=== PATIENT | female | born 1950 | race Caucasian/White ===

== ENCOUNTER 2017-05-24 15:32 | Observation (INO) ==
--- NOTE | 2017-05-24 15:44 | Emergency Department Report ---
Neuro HPI - General Stated Complaint: problem seeing out of left eye Time Seen by Provider: 05/24/17 15:43 Source: patient Mode of arrival: ambulatory Limitations: no limitations - History of Present Illness HPI Narrative: Patient is 66-year-old female, presents emergent for evaluation of loss of vision in left upper field. Patient had sudden onset of vision loss in her left upper eye field only in the left eye approximately 9 AM this morning. Patient didn't think anything of it, however after 6 hours she felt he might need to come to the emergency room for evaluation. Patient denies any headaches , fevers, systemic signs or symptoms or other localizing motor deficits. Patient presents to the ER for evaluation Onset (ago): hour(s) Time: 0900 Time Estimated: No Context: sudden onset - Related Data Home Medications: Home Medications Medication Instructions Recorded Confirmed Aspirin 325 mg PO HS 05/24/17 05/24/17 Lactobacillus Acidophilus 1 cap PO DAILY 05/24/17 05/24/17 [Probiotic] Levothyroxine Tab [Synthroid] 100 mcg PO ACB 05/24/17 05/24/17 Metoprolol Tartrate [Lopressor] 12.5 mg PO BID 05/24/17 05/24/17 Omeprazole [Prilosec] 20 mg PO ACB 05/24/17 05/24/17 Ramipril [Altace] 2.5 mg PO HS 05/24/17 05/24/17 Allergies/Adverse Reactions: Allergies Allergy/AdvReac Type Severity Reaction Status Date / Time cephalexin Allergy Mild Verified 05/24/17 16:33 Wheat Products Allergy Mild Verified 05/24/17 16:33 Review of Systems Constitutional: Denies: fever Eyes: Reports: vision change. Denies: eye pain, eye discharge ENT: Denies: ear pain, throat pain, dental pain, hearing loss Cardiovascular: Denies: chest pain, palpitations, dyspnea on exertion Respiratory: Denies: cough, dyspnea, wheezes Gastrointestinal: Denies: abdominal pain, nausea, vomiting Genitourinary: Denies: urgency, dysuria, frequency, genital lesions Musculoskeletal: Denies: back pain Integumentary: Denies: alopecia Neurological: Denies: headache, weakness, numbness, paresthesias Psychiatric: Denies: anxiety, depression PFSH Patient Stated Medical History Myocardial Infarction Yes Other GI Yes: CELIAC DISEASE Medical History Updates: [place]. Hyperthyroidism - Social History Smoking status: Never smoker Substance use type: does not use Alcohol intake frequency: does not drink Physical Exam - General General appearance: alert, in no apparent distress - Eye Eye exam: Present: PERRL, EOMI, other (patient lack of vision in left upper field, no sign of rectal detachment, does have copper wire) - ENT ENT exam: Present: normal oropharynx - Neck Neck exam: Present: full ROM, trachea midline - Respiratory Respiratory exam: Present: normal lung sounds bilaterally. Absent: respiratory distress, wheezes - Cardiovascular Cardiovascular exam: Present: regular rate, normal rhythm, normal heart sounds - Abdominal Exam Abdominal exam: Present: soft, normal bowel sounds. Absent: distention, tenderness - Back Exam Back exam: Present: full ROM. Absent: tenderness, CVA tenderness (R), muscle spasm, vertebral tenderness - Skin Skin exam: Present: warm, dry - Expanded Neurological Exam Patient oriented to: Present: person, place, time Speech: Present: fluid speech Cranial nerves: Normal: EOM function (II, III, IV, ), facial sensation (V), facial palsy (VII), gag reflex (IX), spinal accessory function (XI), tongue deviation (XII) Cerebellar function: normal gait Motor strength - LUE: 5/5 Motor strength - RUE: 5/5 Motor strength - LLE: 5/5 Motor strength - RLE: 5/5 Sensory exam upper extremity: Normal: light touch Sensory exam lower extremity: Normal: light touch DTR: 2+: biceps (L), biceps (R), patellar (L), patellar (R) Coma scale eye opening: spontaneous Coma scale motor response: obeys commands Coma scale verbal response: oriented Coma scale total: 15 - Psychiatric Psychiatric exam: Present: normal affect, normal mood Course Vital Signs Temperature 98.4 F 05/24/17 15:38 Pulse Rate 80 05/24/17 15:38 Respiratory Rate 18 05/24/17 15:38 Blood Pressure 132/77 05/24/17 15:38 Pulse Oximetry 94 05/24/17 15:38 Temperature 97.9 F 05/25/17 07:00 Pulse Rate 69 05/25/17 08:00 Respiratory Rate 16 05/25/17 07:00 Blood Pressure 126/69 05/25/17 07:00 Pulse Oximetry 93 05/25/17 07:00 Neuro Symptoms/Deficit - MDM Narrative Medical decision making narrative: Did discuss with teleneurologist stroke response. Patient is outside the window , given totality of symptoms TPA is not currently recommended. Would recommend admission CTA of the arteries, ophtho-consult Discuss case with Dr. Lin he will admit - Differential Diagnosis Likely: cerebrovascular accident, transient cerebral ischemia - Medical Records Attestation: I reviewed the patient's medical records. - Lab Data Attestation: I reviewed the patient's lab results. Result diagrams: 05/25/17 04:57 05/25/17 04:57 Lab Results 05/24/17 05/24/17 05/24/17 Range/Units 15:57 15:57 15:57 WBC 9.7 (4.5-11.0) T/MM3 RBC 5.01 (4.00-5.20) M/MM3 Hgb 13.2 (12-16) GM/DL Hct 40.2 (36-46) % MCV 80.2 (80-100) UM3 MCH 26.3 (26-34) UUG MCHC 32.8 (31-37) GM/DL RDW Std Deviation 48.5 (36.9-50.2) FL Plt Count 293 (130-400) T/MM3 MPV 10.3 (9.4-12.4) UM3 Immature Gran % (Auto) 0.2 (0.0-0.5) % Neut % (Auto) 31.8 L (33-66) % Lymph % (Auto) 55.8 H (23-45) % [place] % (Auto) 8.9 (0-9.0) % Eos % (Auto) 2.9 (0-4) % Baso % (Auto) 0.4 (0-2) % Neut # (Auto) 3.1 (1.8-7.7) T/MM3 Lymph # (Auto) 5.4 H (1-4.8) T/MM3 [place] # (Auto) 0.9 H (0-0.8) T/MM3 Eos # (Auto) 0.3 (0-0.5) T/MM3 Baso # (Auto) 0.0 (0-0.2) T/MM3 Abs Immat Gran (auto) 0.02 (0.00-0.03) T/MM3 INR 0.97 L (0.99-1.21) APTT 24.9 (24-36) SEC Turbidity < 20 (0-20) Sodium 147 H (134-144) MEQ/L Potassium 4.2 (3.6-5) MEQ/L Chloride 111 H (98-107) MEQ/L Carbon Dioxide 21 L (22-30) MEQ/L Anion Gap 15 (5-15) MEQ/L BUN 14.0 (7-17) MG/DL Creatinine 1.0 (0.7-1.2) MG/DL GFR Calculation 55 BUN/Creatinine Ratio 14 (6-26) RATIO Glucose 95 (65-110) MG/DL Glucometer (65-110) mg/dL Calculated Osmolality 283 H (261-280) MOSM/KG Calcium 9.0 (8.4-10.2) MG/DL Total Bilirubin 0.30 (0.20-1.30) MG/DL Icterus Index < 2 (0-7) AST 21 (14-36) U/L ALT 35 (9-52) U/L Alkaline Phosphatase 92 (38-126) U/L Total Protein 7.3 (6.3-8.2) G/DL Albumin 4.1 (3.5-5.0) G/DL Globulin 3.2 (2.4-3.6) G/DL Albumin/Globulin Ratio 1.3 (1.1-2.2) RATIO Specimen Hemolysis < 15 (0-25) 02/16/18 Range/Units 16:08 WBC (4.5-11.0) T/MM3 RBC (4.00-5.20) M/MM3 Hgb (12-16) GM/DL Hct (36-46) % MCV (80-100) UM3 MCH (26-34) UUG MCHC (31-37) GM/DL RDW Std Deviation (36.9-50.2) FL Plt Count (130-400) T/MM3 MPV (9.4-12.4) UM3 Immature Gran % (Auto) (0.0-0.5) % Neut % (Auto) (33-66) % Lymph % (Auto) (23-45) % [place] % (Auto) (0-9.0) % Eos % (Auto) (0-4) % Baso % (Auto) (0-2) % Neut # (Auto) (1.8-7.7) T/MM3 Lymph # (Auto) (1-4.8) T/MM3 [place] # (Auto) (0-0.8) T/MM3 Eos # (Auto) (0-0.5) T/MM3 Baso # (Auto) (0-0.2) T/MM3 Abs Immat Gran (auto) (0.00-0.03) T/MM3 INR (0.99-1.21) APTT (24-36) SEC Turbidity (0-20) Sodium (134-144) MEQ/L Potassium (3.6-5) MEQ/L Chloride (98-107) MEQ/L Carbon Dioxide (22-30) MEQ/L Anion Gap (5-15) MEQ/L BUN (7-17) MG/DL Creatinine (0.7-1.2) MG/DL GFR Calculation BUN/Creatinine Ratio (6-26) RATIO Glucose (65-110) MG/DL Glucometer 80 (65-110) mg/dL Calculated Osmolality (261-280) MOSM/KG Calcium (8.4-10.2) MG/DL Total Bilirubin (0.20-1.30) MG/DL Icterus Index (0-7) AST (14-36) U/L ALT (9-52) U/L Alkaline Phosphatase (38-126) U/L Total Protein (6.3-8.2) G/DL Albumin (3.5-5.0) G/DL Globulin (2.4-3.6) G/DL Albumin/Globulin Ratio (1.1-2.2) RATIO Specimen Hemolysis (0-25) - Radiology Data Attestation: I reviewed the patient's radiology results. CT scan shows no acute embolic or hemorrhagic etiology - EKG Data EKG #1 EKG attestation: Yes: I reviewed and interpreted this EKG. Rate: normal Rhythm: other (atrial pacing) [place]/QRS: normal Interpretation: no acute changes Critical Care Time Critical Care Time: Yes Total Critical Care Time: 42 Attestation: The high probability of a clinically significant, sudden or life threatening deterioration of the cardiovascular, neurologic system(s) required my full and direct attention, intervention and personal management. The aggregate critical care time was 42 minutes. This time is in addition to time spent performing reported procedures but includes the following: X Data Review and interpretation X Patient assessment and monitoring of vital signs X Documentation X Medication orders and management Disposition Clinical Impression: cva Disposition: 02 To [facility] Acute Care Condition: Stable for Transport - Seen By: physician
[2017-05-24] MEDS ORDERED: SALINE FLUSH 10ml SYRINGE IVF PRN (15:56)
--- NOTE | 2017-05-24 16:01 | CT Scan Report ---
Indication: loss of vision left upper PROCEDURE: CT head/brain wo con: Encounter: Initial Comparison: None Technique: Axial CT images through the head were performed without contrast. Iterative Reconstruction dose reducing technique was utilized. FINDINGS: Probable physiologic bilateral frontal periventricular calcifications. The ventricles are of normal size, shape, and contour for the patient's age. The brainstem, cerebellum, and cerebral hemispheres otherwise have a normal morphology and CT attenuation. There is no evidence of midline displacement. No hemorrhage, signs of acute territorial stroke, mass effect, mass lesions, or edema is evident. The visualized portions of the skull base, midface, and calvarium demonstrate no abnormality. The paranasal sinuses are well aerated and free of significant disease. The tympanic and mastoid cavities appear normal. IMPRESSION: No acute intracranial abnormality or hemorrhage. .
[2017-05-24] MEDS ORDERED: IOHEXOL 350mg/ml 75ml INJECTION ONE (17:53)
[2017-05-24] MEDS ORDERED: SALINE FLUSH 10ml SYRINGE ONE (17:54)
--- NOTE | 2017-05-24 18:25 | History & Physical Report ---
History of Present Illness Date: 05/24/17 Chief complaint: Inabilty to see out of top of left eye HPI: 66 y/o female with CAD/Hx TX in 2005 presents to [facility] ED secondary to acute onset of lose of vision in left upper visual field. Symptoms onset abruptly this morning about 9 am. Noticed she could not see out of left eye, upper area. Vision to right eye normal. Has not been having dry or itching eyes. No headache or head pain. Hearing and speech normal. No weakness or incoordination of her arms or legs. No falls, trauma or injury. Denies palpitations, chest pressure, chest pain, or heaviness. No nausea or ab pain. Appetite stable. Bowel function stable. Reports 'cold like' symptoms last week which are resolving--having less cough/congestion. No f/c. Presents to ED approximately 6 hours after onset of symptoms. CT head unremarkable for mass or bleed. Symptoms persistent. Teleneurology activated. Outside window for thrombolytics. Recommend CTA of head and neck. Patient on ASA and adherent. Discussed about changing to Plavix, but very reluctant as reports started to 'go out of her head ' when she was on Plavix years ago. Review of Systems All systems PM: 10-point ROS was reviewed, no additional remarkable complaints except - Constitutional Constitutional: Absent: headache(s) - EENMT Eyes: Present: loss of vision. Absent: pain, photophobia Balance: Absent: vertigo Nose: Present: allergies - Cardiovascular Cardiovascular: Absent: chest pain, palpitations, edema - Respiratory Respiratory: Present: cough (Resolving). Absent: chest congestion - Gastrointestinal Gastrointestinal: Absent: abdominal pain, diarrhea, nausea - Genitourinary Genitourinary: Absent: difficulty urinating, dysuria - Musculoskeletal Musculoskeletal: Absent: muscle cramps, muscle weakness, myalgias - Integumentary/Breasts Integumentary: Absent: pruritus, rash - Neurological Neurological: Present: as per HPI, loss of vision. Absent: abnormal gait, abnormal movements, abnormal speech, confusion, dizziness, focal weakness, memory loss, vertigo, weakness - Hematologic/Lymphatic Hematologic/Lymphatic: Absent: easy bleeding, easy bruising - Allergic/Immunologic Allergic/Immunologic: Present: seasonal rhinorrhea. Absent: itchy eyes Past Medical History Patient Stated Medical History Myocardial Infarction Yes Other GI Yes: CELIAC DISEASE Medical History Updates: CAD with HX TX 2006. Grave's disease Hyperthyroidism. GERD. Seasonal allergies Surgical History: Hx Pacemaker/difibrilator. Hx Cholecystectomy. Hx Colonoscopy Family History: Mother had diabetes Father had colon cancer Family History Updates: . - Social History Smoking status: Former smoker Substance use type: does not use Alcohol intake frequency: does not drink Housing: apartment Household members: none (2 pet cats) Current residence: Apartment/Private Home Social history: Dr Yates PCP Medications Home Medications Medication Instructions Recorded Confirmed Type Aspirin 325 mg PO HS 05/24/17 05/24/17 History Lactobacillus Acidophilus 1 cap PO DAILY 05/24/17 05/24/17 History [Probiotic] Levothyroxine Tab [Synthroid] 100 mcg PO ACB 05/24/17 05/24/17 History Metoprolol Tartrate [Lopressor] 12.5 mg PO BID 05/24/17 05/24/17 History Omeprazole [Prilosec] 20 mg PO ACB 05/24/17 05/24/17 History Ramipril [Altace] 2.5 mg PO HS 05/24/17 05/24/17 History Allergies Allergy/AdvReac Type Severity Reaction Status Date / Time cephalexin Allergy Mild Verified 05/24/17 16:33 Wheat Products Allergy Mild Verified 05/24/17 16:33 Exam Vital Signs: Temperature 98.4 F 05/24/17 15:38 Pulse Rate 69 05/24/17 18:00 Respiratory Rate 19 05/24/17 18:00 Blood Pressure 150/78 H 05/24/17 17:51 Pulse Oximetry 94 05/24/17 18:00 Height/Weight/BMI: Height 1.65 m Weight 75.9 kg - Constitutional Present: well nourished, well developed, average body habitus, cooperative - Routine HEENT Exam Head: Present: normocephalic, atraumatic Eye: Present: EOMI, PERRL, normal accommodation. Absent: scleral injection, nystagmus ENT: Absent: mucous membranes dry - Routine Neck Exam Present: supple, full ROM, trachea midline - Routine Respiratory Exam Present: CTA bilaterally. Absent: rales, respiratory distress, rhonchi, stridor , wheezes, crackles - Routine Cardiovascular Exam Present: RRR, no murmur - Routine Abdominal Exam Present: soft, normoactive bowel sounds, non distended, non tender. Absent: guarding - Routine Extremities Exam Present: no edema, pulses intact, normal capillary refill. Absent: cyanosis, clubbing - Routine Skin Exam Present: intact, dry, warm, normal turgor - Routine Neurological Exam Present: alert, oriented X3, moving all extremities, vision grossly intact, hearing grossly intact, normal speech. Absent: motor deficit, altered mental status, nystagmus, facial asymmetry - Routine Psychiatric Exam Present: normal affect, normal thought process, cooperative, good insight. Absent: anxious, agitated Results - Labs CBC & Chem 7: 05/24/17 15:57 05/24/17 15:57 Assessment and Plan (1) Visual field defect Current visit: Yes Status: Acute Assessment and Plan: Assessment Acute visual field loss of left eye, upper visual field Concern for acute ischemic/embolic event Hypernatremia (POA) CAD ASPVD HTN Grave's disease Celiac disease GERD Seasonal allergies Plan OBS admission - Tele. Obtain CTA of head/neck as per teleneurology. Check Lipid profile. PT/OT eval and treat to assess functional status. Discussed with patient about changing to Plavix secondary to neurological changes, patient against this secondary to prior problems with Plavix. Continue ASA therapy. Continue home antihypertensives. Start IVF of 1/2NS at 100cc/hr to normalize serum sodium and provide renal protection from IV contrast. SCD for DVT prevention. Discussed code status with patient - request full resuscitation - order is written. Care to return to Dr Osuna at time of discharge from [facility]. Case discussed with ED provider. DVT Prophylaxis: SCD's Resuscitation Status: Full Code - Physician Narrative Physician: Kishor Bynum MD Narrative: Date: 05/24/17 Time: 1815 Hospital Course Summary Disclaimer: The visit summary below is not to be considered part of the above Progress Note. Hospital Course: 05/24/17 OBS admission OBS admission - Tele Obtain CTA of head/neck as per teleneurology. Check Lipid profile. PT/OT eval and treat to assess functional status. Discussed with patient about changing to Plavix secondary to neurological changes, patient against this secondary to prior problems with Plavix. Continue ASA therapy. Continue home antihypertensives. Start IVF of 1/2NS at 100cc/hr to normalize serum sodium and provide renal protection from IV contrast. SCD for DVT prevention. Discussed code status with patient - request full resuscitation - order is written. Care to return to Dr Osuna at time of discharge from [facility].
[2017-05-24] MEDS ORDERED: ONDANSETRON 4 MG/2 ML INJECTION IVP PRN (18:54)
[2017-05-24] MEDS ORDERED: ACETAMINOPHEN 325 MG TABLET PO PRN (18:54)
[2017-05-24 19:02] VITALS: BMI 28.9
[2017-05-24] MEDS: 1/2 NS 1,000 ML IV SCH (19:23)
[2017-05-24] MEDS: ASPIRIN 325 MG TABLET PO SCH (20:04)
[2017-05-24] MEDS: RAMIPRIL 2.5 MG PO SCH (20:05)
[2017-05-25] MEDS: 1/2 NS 1,000 ML IV SCH (05:28)
[2017-05-25] MEDS: OMEPRAZOLE 20 MG CAP - PT OWN PO SCH (05:32)
[2017-05-25] MEDS: LEVOTHYROXINE 100 MCG TAB - PT OWN PO SCH (05:32)
[2017-05-25] MEDS: METOPROLOL TARTRATE 25mg TAB - PT OWN PO SCH ×2 (09:33→17:51)
[2017-05-25] MEDS: LACTOBACILLUS PO SCH (09:33)
--- NOTE | 2017-05-25 12:47 | Progress Note ---
- Date 05/25/17 Subjective: 66 y/o female with CAD/Hx MA in 2005 with stent to LCirc (Dr. Casiano is break out worker), Cardiac arrhythmias (Sees Dr. Salcido. S/P ICD), HTN, Hypothyroidism, GERD, and PVD with vertebral artery severe stenosis or occlusion (Carotid doppler 12/2016) presents to [facility] ED secondary to acute onset of loss of vision in left upper visual field. Symptoms onset abruptly on the morning of admission around 9 am. Noticed she could not see out of left eye, upper area. Vision to right eye normal. Has not been having dry or itching eyes. No headache or head pain. Hearing and speech normal. No weakness or incoordination of her arms or legs. No falls, trauma or injury. Denies palpitations, chest pressure, chest pain, or heaviness. No nausea or ab pain. Appetite stable. Bowel function stable. Reports 'cold like' symptoms last week which are resolving--having less cough/congestion. No f/c. Presents to ED approximately 6 hours after onset of symptoms. CT head unremarkable for mass or bleed. Symptoms persistent. Teleneurology activated. Outside window for thrombolytics. Recommend CTA of head and neck. Patient on ASA and adherent. Discussed about changing to Plavix, but very reluctant as reports started to ' go out of her head' when she was on Plavix years ago. Patient seen this morning. She states that she continues to have a garza field from [place] up on her left side of her visual manjarrez. She cannot see through the garza. She thinks it might be less dark of a garza that was yesterday. Otherwise she feels well without any focal neurologic deficits besides the visual field effect. She denies any headache. She denies shortness of breath, cough or sputum production. She denies any chest pain or palpitations. She denies any nausea or vomiting. She denies any abdominal pain. No bowel movement since admission. Abdomen is soft. She is passing gas. Objective Vital signs: Temperature 97.9 F 05/25/17 07:00 Pulse Rate 70 05/25/17 07:00 Respiratory Rate 16 05/25/17 07:00 Blood Pressure 126/69 05/25/17 07:00 Pulse Oximetry 93 05/25/17 07:00 Height/Weight/BMI: Height 1.6 m Weight 75 kg Body Mass Index 28.9 Comments: Gen: alert and oriented. NAD Skin: warm and dry HEENT: NC/AT PERRL, EOMI, Sclera, lids and conjunctiva wnl. MMM. OP clear. Neck: No JVD, Carotids 2+ without bruits Lungs: clear. No rales, rhonchi or wheezes CV: regular. No murmur, rub or gallop Abd: soft. +BS. NT/ND MS: No edema. Good strength and ROM Neuro: Left upper 1/2 visual field deficit Results - Labs CBC & Chem 7: 05/25/17 04:57 05/25/17 04:57 Assessment and Plan (1) Visual field defect Current visit: Yes Status: Acute Assessment and Plan: Assessment/plan: 1. Acute visual field loss of left eye, upper visual field Concern for acute ischemic/embolic event -Interrogate PPM to see if any evidence of afib/flutter -CTA of head and neck shows Moderate (approx 50% stenosis of WILLY, Minimal LICA plaquing, decreased flow into the right vertebral artery relative to the left vertebral artery. Both ophthalmic arteries are patent. -On ASA 325mg daily -Pt refuses statin or plavix -Dr. Abraham supposed to see pt ?today 2. Hypernatremia (POA) -resolved 3. CAD -S/P MA with stent to LCirc in 2005 -No symptoms of angina -Lipid profile shows LDL 95, HDL 41 -Pt refuses statin 4. PVD -R vertebral artery severe stenosis vs occlusion (chronic since 2009) 5. HTN -Controlled on home meds Altace 2.5mg daily and Metoprolol tartrate 12.5 mg BID. 6. Grave's disease -On synthroid 7. Celiac disease -Dietary adjustments 8. GERD -Prilosec 9. Prophylaxis -PPI and heparin SQ, SCDs Probably home in am with follow up with a death claim examiner Care to return to Dr Osuna at time of discharge from [facility]. - Physician Narrative Narrative: Date: 05/25/17 Time: 1243 Hospital Course Summary Disclaimer: The visit summary below is not to be considered part of the above Progress Note. Hospital Course: 05/24/17 OBS admission OBS admission - Tele Obtain CTA of head/neck as per teleneurology. Check Lipid profile. PT/OT eval and treat to assess functional status. Discussed with patient about changing to Plavix secondary to neurological changes, patient against this secondary to prior problems with Plavix. Continue ASA therapy. Continue home antihypertensives. Start IVF of 1/2NS at 100cc/hr to normalize serum sodium and provide renal protection from IV contrast. SCD for DVT prevention. Discussed code status with patient - request full resuscitation - order is written. Care to return to Dr Osuna at time of discharge from [facility].
[2017-05-25] MEDS: ASPIRIN 325 MG TABLET PO SCH (20:18)
[2017-05-25] MEDS: RAMIPRIL 2.5 MG PO SCH (20:18)
[2017-05-26] MEDS: OMEPRAZOLE 20 MG CAP - PT OWN PO SCH (05:52)
[2017-05-26] MEDS: LEVOTHYROXINE 100 MCG TAB - PT OWN PO SCH (05:53)
[2017-05-26 07:34] VITALS: BP 123/73; RESP 14; TEMP 97.4; O2SAT 97
[2017-05-26] MEDS: METOPROLOL TARTRATE 25mg TAB - PT OWN PO SCH (09:36)
[2017-05-26] MEDS: LACTOBACILLUS PO SCH (09:36)
--- NOTE | 2017-05-26 10:03 | Discharge Summary ---
Discharge Information Date of admission: 05/24/17 18:09 Anticipated date of discharge: 05/26/17 Attending Physician: Guera Scruggs MD Primary care physician: Kanika Osuna, - Discharge Diagnosis (1) Visual field defect Status: Acute Acute visual field defect HTN Hypothyroid Peripheral vascular disease CAD with stent to LCx in 2005 GERD - Laboratory Labs: 05/25/17 04:57 05/25/17 04:57 - Radiology Radiology: CT of head 05/24/17 IMPRESSION: No acute intracranial abnormality or hemorrhage. 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 Salcido. S/P ICD), HTN, Hypothyroidism, GERD, and PVD with vertebral artery severe stenosis or occlusion (Carotid doppler 12/2016) presents to [facility] ED secondary to acute onset of loss of vision in left upper visual field. Symptoms onset abruptly on the morning of admission around 9 am. Noticed she could not see out of left eye, upper area. Vision to right eye normal. Has not been having dry or itching eyes. No headache or head pain. Hearing and speech normal. No weakness or incoordination of her arms or legs. No falls, trauma or injury. Denies palpitations, chest pressure, chest pain, or heaviness. No nausea or ab pain. Appetite stable. Bowel function stable. Reports 'cold like' symptoms last week which are resolving--having less cough/congestion. No f/c. Presents to ED approximately 6 hours after onset of symptoms. CT head unremarkable for mass or bleed. Symptoms persistent. Teleneurology activated. Outside window for thrombolytics. Recommend CTA of head and neck. Patient on ASA and adherent. Discussed about changing to Plavix, but very reluctant as reports started to ' go out of her head' when she was on Plavix years ago. Patient seen this morning. She states that she continues to have a garza field from [place] up on her left side of her visual manjarrez. She cannot see through the garza. She thinks it might be less dark of a garza that was yesterday. Otherwise she feels well without any focal neurologic deficits besides the visual field effect. She denies any headache. She denies shortness of breath, cough or sputum production. She denies any chest pain or palpitations. She denies any nausea or vomiting. She denies any abdominal pain. No bowel movement since admission. Abdomen is soft. She is passing gas. She is up and ambulating without difficulty. Objective Vital signs: Temperature 97.4 F 05/26/17 07:32 Pulse Rate 73 05/26/17 07:32 Respiratory Rate 14 05/26/17 07:32 Blood Pressure 123/73 05/26/17 07:32 Pulse Oximetry 97 05/26/17 07:32 Height/Weight/BMI: Height 1.6 m Weight 73.5 kg Body Mass Index 28.9 Comments: Gen: alert and oriented. NAD Skin: warm and dry HEENT: NC/AT PERRL, EOMI, Sclera, lids and conjunctiva wnl. MMM. OP clear. Neck: No JVD, Carotids 2+ without bruits Lungs: clear. No rales, rhonchi or wheezes CV: regular. No murmur, rub or gallop Abd: soft. +BS. NT/ND MS: No edema. Good strength and ROM Neuro: Left upper 1/2 visual field deficit Hospital Course This is a general summary of the patient's hospital course. For more details refer to the complete medical record. Ms. Miramontes was admitted on 05/24 with the superior left visual field defect that started abruptly around 9 AM that day. There were no other symptoms. She has had no other injuries. She presented approximately 6 hours after the onset of the defect. She is on a full dose aspirin at home. Her CT of the head showed no abnormalities and specifically no hemorrhage. She was out of the window for lytics. She subsequently underwent a CTA of head and neck shows Moderate ( approx 50% stenosis of WILLY, Minimal LICA plaquing, decreased flow into the right vertebral artery relative to the left vertebral artery. Both ophthalmic arteries are patent. She had a carotid ultrasound in December 2016 showing a right vertebral artery with severe stenosis or occlusion that felt to be chronic dating back to 2009. Her visual field defect went from a dark black curtain to a garza curtain that she is still unable to see through. She refuses to take a Statin and refuses to take Plavix. Her lipids are reasonable with an LDL of 95 and HDL of 41. Triglycerides of 80. Her blood pressures are well controlled. She is going to need to follow up as soon as possible with an surveyor instrument assistant. In addition she'll need to follow up with Dr. Norris for an echo , possibly TTE with bubble study. She will be sent home on a full dose aspirin. Time spent with patient: 25 - 35 minutes Resuscitation Status: Full Code Discharge Plan - Discharge Disposition Disposition: Discharged Home, Self-Care *Condition: Stable Reason For Visit (Visit label in EMR): left upper visual field loss - Discharge Medications *Discharge Medications: New Acetaminophen [Tylenol] 650 mg PO Q5H PRN tablet PRN Reason: Discomfort Continue Lactobacillus Acidophilus [Probiotic] 1 cap PO DAILY Ramipril [Altace] 2.5 mg PO HS Levothyroxine Tab [Synthroid] 100 mcg PO ACB Metoprolol Tartrate [Lopressor] 12.5 mg PO BID Omeprazole [Prilosec] 20 mg PO ACB Aspirin 325 mg PO HS - Discharge Packet/Instructions *Diet: Heart healthy *Activity: As tolerated *Pain Management/Treatment: N/A *Wound Care: N/A *Expected Signs/Symptoms: Report if worsening symptoms. *Notify Physician if: Worsening visual defects or other neurological changes *During Business Hours Contact: PCP *After Business Hours Contact: ED *Pending Lab/Results: Follow up w/Provider (Dr. Norris for an echo with bubble study, possible MARK, Call Dr. Abraham's office in am for appt HARSH) - Referrals/Follow Up *Referrals/Follow Up: DONIS NORRIS MD [Physician Nonstaff] - Kamala Abraham MD [Physician] - - Patient Handouts - Dismissal Complete Discharge Instructions are:: Complete Physician Narrative - Narrative Attestation Narrative: Date: 05/26/17 Time: 958
--- NOTE | 2017-05-26 10:36 | CT Scan Report ---
Indication: rule out occlusion PROCEDURE: CT angio head/neck: Encounter: Initial Comparison: CT head dated May 24, 2017 and carotid Doppler dated December 18, 2016 Technique: CT Head: Axial images were obtained through the head without and with intravenous contrast. CTA: Angiographic phase axial images were acquired from the aortic arch through the entire head following intravenous contrast administration. Multiplanar 2-D reconstructions and maximum intensity projection images were produced for additional assessment. 3-D volume rendered images of the [place] were also produced by the technologist. Automated Exposure Control and Iterative Reconstruction dose reducing techniques were utilized. Contrast: Omnipaque 350 74mL Findings: CT head without and with contrast: The ventricles are of normal size, shape, and contour for the patient's age. The brainstem, cerebellum, and cerebral hemispheres otherwise have a normal morphology and CT attenuation. No hemorrhage, mass effect, mass lesions, or edema is evident. No areas of abnormal enhancement are seen. The visualized portions of the skull base, sinuses, and calvarium demonstrate no abnormality. CTA head with intravenous contrast: The distal cervical, petrous, cavernous, and supraclinoid segments of the internal carotid arteries are widely patent without significant stenosis or other vascular abnormalities. The anterior, middle, and posterior cerebral arteries are also widely patent without significant stenosis or occlusion. No aneurysms, vascular malformations, flow-limiting stenoses, or other arterial abnormality are evident. The visualized portion of the dural sinuses and cortical veins are also well seen and show no definite stenosis or occlusion. CTA neck with intravenous contrast: The aortic arch, brachiocephalic artery, bilateral subclavian arteries, bilateral common carotid arteries and left internal carotid arteries are widely patent without significant stenosis or other vascular abnormality. Atherosclerotic plaque at the right ICA origin causing a 52% stenosis by NASCET criteria. The right vertebral artery is occluded proximally with retrograde filling. There is decreased contrast opacification of the right proximal vertebral artery near the origin. Left vertebral artery appears normal and dominant. Groundglass opacities in the lung apices. Impression: 1. CT head: Unremarkable head CT, both before and after contrast. 2. CTA head: No aneurysms, vascular malformations, or flow limiting stenoses. 3. CTA neck: 52% stenosis of the right ICA origin. Chronic occlusion of the right vertebral artery with retrograde filling. This has been demonstrated on multiple studies dating back to 2009. There is a preliminary report by [employer]. .
[2017-05-26 13:13] VITALS: PULSE 69
== END 2017-05-26 11:00 | disposition home or self-care (01) ==
LOC: ED 15:32 → MED 15:32 → SUATTDRO 18:09 → MED 18:50
PROVIDERS: ADMIT Hospitalist; ATTEND Internal Medicine Cardiovascular Disease